=== PATIENT | female | born 1960 | race African-American/Black ===

== ENCOUNTER 2018-06-18 08:21 | Day surgery (SDC) | payer MEDICARE ==
[2018-06-18] VITALS (13 sets, daily range): BP systolic 113–146; BP diastolic 63–90
[~2018-06-18] VITALS: Ht 166.4 cm; Wt 112.8 kg
[~2018-06-18 08:21] MED LIST: CARV25TA PO; CLON0.3T PO; DILT240C11 PO; FURO20TA6 PO; GABA-533 PO; MAGN250T2 PO; OMEP40CA37 PO; POTA-79 PO; RIVA10TA PO; SODIUM CHLORIDE 0.9% 1000ML 1,000 ML IV ONE
[2018-06-18] MEDS ORDERED: PROPOFOL 10 MG/ML 20ML VIAL IV ONE ×4 (12:09→12:54)
[2018-06-27] MEDS ORDERED: SPIR1TAB4 PO (14:46)
[2018-06-27] MEDS ORDERED: RIVA20TA PO (14:46)
[2018-06-27] MEDS ORDERED: LIRA0.6P SQ (14:46)
[2018-07-01] MEDS ORDERED: SPIR25TA PO (16:58)
[2018-07-01] MEDS ORDERED: METO75TA PO (16:58)
[2018-07-01] MEDS ORDERED: TELM20TA2 PO (16:59)
== END 2018-06-18 14:15 | disposition home or self-care (01) ==
LOC: DAH 08:21 → ENDO 14:15
PROVIDERS: ATTEND Internal Medicine Gastroenterology
DX: D12.2 Benign neoplasm of ascending colon (principal); D12.3 Benign neoplasm of transverse colon; K57.30 Diverticulosis of large intestine without perforation or abscess without bleeding; K64.0 First degree hemorrhoids; K44.9 Diaphragmatic hernia without obstruction or gangrene; I85.00 Esophageal varices without bleeding; K29.50 Unspecified chronic gastritis without bleeding; K31.89 Other diseases of stomach and duodenum; K25.9 Gastric ulcer, unspecified as acute or chronic, without hemorrhage or perforation; K20.9 Esophagitis, unspecified; K21.9 Gastro-esophageal reflux disease without esophagitis; I10 Essential (primary) hypertension; E11.9 Type 2 diabetes mellitus without complications; I48.91 Unspecified atrial fibrillation; K60.2 Anal fissure, unspecified; D64.9 Anemia, unspecified; D25.9 Leiomyoma of uterus, unspecified; Z79.899 Other long term (current) drug therapy; Z79.01 Long term (current) use of anticoagulants
CPT/HCPCS: 36415; 43239; 45380; 45385; 87520; 88305; 88312; 88342; 93005; A4606; J2704 ×4; J7030

== ENCOUNTER 2018-07-17 07:52 | Inpatient (IN) | payer MEDICARE ==
[~2018-07-17] VITALS: Ht 167.6 cm; Wt 110.5 kg
[~2018-07-17 07:52] MED LIST changes: -CARV25TA PO; -CLON0.3T PO; -DILT240C11 PO; +LIRA0.6P SQ; +METO75TA PO; -RIVA10TA PO; +RIVA20TA PO; -SODIUM CHLORIDE 0.9% 1000ML 1,000 ML IV ONE; +SPIR25TA PO; +TELM20TA2 PO
[2018-07-17] MEDS ORDERED: IPRATROPIUM/ALBUTEROL SULFATE 3 ML SOLUTION IH ONE (08:06)
[2018-07-17 08:45] LABS: BASOPHILS % (AUTO) 0.4 % (0.0-5.0); EOSINOPHILS % (AUTO) 0.8 % (0.0-8.0); HEMATOCRIT 32.6 % (36-48); LYMPHOCYTES % (AUTO) 11.8 % (21.0-51.0); MEAN CORPUSCULAR VOLUME 87.8 fL (79-99); MONOCYTES % (AUTO) 5.4 % (3.0-13.0); NEUTROPHILS % (AUTO) 81.6 % (40.0-77.0); NUCLEATED RED BLOOD CELLS 0.1 % (0.0-0.19); PLATELET COUNT (AUTO) 223 K/uL (130-400); RED BLOOD CELL COUNT(AUTO) 3.71 MIL/uL (4.00-5.50); RED CELL DISTRIBUTION WIDTH 15.7 % (11.0-15.5); WHITE BLOOD COUNT (AUTO) 9.1 K/uL (4.8-10.8)
[2018-07-17 08:55] LABS: CREATININE 0.9 mg/dL (0.5-1.5); POTASSIUM 4.5 mmol/L (3.5-5.1)
[2018-07-17 08:59] LABS: INR 1.54 (0.85-1.15); PARTIAL THROMBOPLASTIN TIME 40.7 SEC (26.3-35.5); TOTAL PROTEIN, SERUM 8.7 g/dL (6.0-8.3)
[2018-07-17 09:20] LABS: B-TYPE NATRIURETIC PEPTIDE 1020 pg/mL (0-100)
[2018-07-17] MEDS ORDERED: ASPIRIN 325 MG TABLET ONE (09:29)
[2018-07-17] MEDS ORDERED: FUROSEMIDE 10 MG/ML 4ML VIAL ONE (09:29)
[2018-07-17] MEDS ORDERED: FUROSEMIDE 10 MG/ML 2ML VIAL ONE (09:30)
[2018-07-17] MEDS ORDERED: FUROSEMIDE 10 MG/ML 4ML VIAL IVP SCH (10:00)
[2018-07-17 10:18] LABS: APPEARANCE,URINE Cloudy (CLEAR); BILIRUBIN,URINE Negative (NEGATIVE); COLOR,URINE Yellow (YELLOW); GLUCOSE, URINE (UA) Negative (NEGATIVE); KETONES,URINE Negative (NEGATIVE); LEUKOCYTE ESTERASE ,URINE Trace (NEGATIVE); NITRATE,URINE Negative (NEGATIVE); OCCULT BLOOD,URINE Negative (NEGATIVE); PROTEIN,URINE Trace (NEGATIVE)
[2018-07-17 10:25] LABS: BACTERIA,URINE Rare /HPF (None Seen); MUCUS,URINE Few LPF (None Seen); RBC,URINE None Seen /HPF (0-1); SQUAMOUS EPITHELIAL CELL,UR Few /HPF (0-2); WBC,URINE None Seen /HPF (0-1)
[2018-07-17 11:30] VITALS: BP 104/70
[2018-07-17 15:48] VITALS: BP 103/79
[2018-07-17 19:00] VITALS: BP 118/79
[2018-07-17] MEDS ORDERED: LACTULOSE 20 GM/30 ML UDCUP PO PRN (21:15)
[2018-07-17] MEDS: METOPROLOL TARTRATE 25 MG TAB PO SCH (21:41)
[2018-07-17] MEDS: RIVAROXABAN 20 MG TABLET PO SCH (21:41)
[2018-07-17] MEDS: GABAPENTIN 100 MG CAPSULE PO SCH (21:41)
[2018-07-17] MEDS ORDERED: ONDANSETRON ODT 4 MG TAB PO PRN (21:45)
[2018-07-17] MEDS ORDERED: ACETAMINOPHEN EXTRA STRENGTH 500 MG TABLET PO PRN (21:45)
[2018-07-17] MEDS ORDERED: CLONIDINE HCL 0.3 MG TABLET PO PRN (21:45)
[2018-07-17] MEDS ORDERED: TRAMADOL HCL 50 MG TABLET PO PRN (21:45)
[2018-07-17] MEDS ORDERED: ONDA8TAB11 PO (21:54)
[2018-07-17] MEDS ORDERED: FLUT16H NASAL (21:54)
[2018-07-17] MEDS ORDERED: CLON0.3T PO (21:54)
[2018-07-17] MEDS ORDERED: MONT10TA24 PO (21:54)
[2018-07-17] MEDS ORDERED: TRAM50TA4 PO (21:54)
[2018-07-17] MEDS ORDERED: MAGN400C PO (21:55)
[2018-07-17] MEDS ORDERED: CETI10CA5 PO (21:57)
[2018-07-17] MEDS ORDERED: ACET-66 PO (21:59)
[2018-07-17] MEDS ORDERED: POTA-79 PO (22:00)
[2018-07-17 23:00] VITALS: BP 138/77
[2018-07-18] VITALS (7 sets, daily range): BP systolic 139–164; BP diastolic 76–99
[2018-07-18 04:33] LABS: HEMATOCRIT 33.6 % (36-48); MEAN CORPUSCULAR HEMOGLOBIN 28.1 pg (27.0-33.0); MEAN CORPUSCULAR VOLUME 87.9 fL (79-99); NUCLEATED RED BLOOD CELLS 0.1 % (0.0-0.19); PLATELET COUNT (AUTO) 223 K/uL (130-400); RED BLOOD CELL COUNT(AUTO) 3.82 MIL/uL (4.00-5.50); RED CELL DISTRIBUTION WIDTH 15.5 % (11.0-15.5); WHITE BLOOD COUNT (AUTO) 9.7 K/uL (4.8-10.8)
[2018-07-18 04:52] LABS: ALBUMIN 3.1 g/dL (3.5-5.0); BILIRUBIN,TOTAL 0.9 mg/dL (0.2-1.0); CREATININE 0.9 mg/dL (0.5-1.5); POTASSIUM 3.9 mmol/L (3.5-5.1); TOTAL PROTEIN, SERUM 8.8 g/dL (6.0-8.3)
[2018-07-18] MEDS: FUROSEMIDE 10 MG/ML 4ML VIAL IVP SCH ×2 (05:04→15:22)
[2018-07-18] MEDS ORDERED: IPRATROPIUM/ALBUTEROL SULFATE 3 ML SOLUTION IH PRN (06:00)
[2018-07-18] MEDS: INSULIN HUMULIN R 100 UNIT/ML 3ML SQ SCH ×4 (06:20→22:08)
[2018-07-18] MEDS: IPRATROPIUM/ALBUTEROL SULFATE 3 ML SOLUTION IH SCH ×4 (07:22→18:23)
[2018-07-18] MEDS: LEVOFLOXACIN 500 MG/D5W 100 ML 100 ML IV SCH (08:41)
[2018-07-18] MEDS: FLUTICASONE PROPIONATE 50MCG/SPRAY 16 GM BOTTLE EN SCH (08:41)
[2018-07-18] MEDS: METHYLPREDNISOLONE SOD SUCC 125MG/2ML VIAL IVP SCH ×2 (08:41→21:55)
[2018-07-18] MEDS: MAGNESIUM OXIDE 400 MG TABLET PO SCH ×2 (08:43→21:58)
[2018-07-18] MEDS: CETIRIZINE HCL 5 MG TABLET PO SCH (08:43)
[2018-07-18] MEDS: PANTOPRAZOLE SODIUM 40 MG TABLET.DR PO SCH (08:43)
[2018-07-18] MEDS: METOPROLOL TARTRATE 25 MG TAB PO SCH ×2 (08:43→21:58)
[2018-07-18] MEDS: LOSARTAN 50 MG TABLET PO SCH (08:44)
[2018-07-18] MEDS: POTASSIUM CHLORIDE 20 MEQ ERTAB PO SCH ×2 (08:44→08:48)
[2018-07-18] MEDS: GABAPENTIN 100 MG CAPSULE PO SCH ×2 (08:46→21:59)
[2018-07-18] MEDS: SPIRONOLACTONE 25 MG TAB PO SCH (08:47)
[2018-07-18] MEDS: MAGNESIUM 250 MG PO SCH (09:00)
[2018-07-18] MEDS: LIRAGLUTIDE 1.8 MG SQ SCH (09:00)
[2018-07-18] MEDS: MONTELUKAST SODIUM 10 MG TAB PO SCH (21:55)
[2018-07-18] MEDS: RIVAROXABAN 20 MG TABLET PO SCH (21:58)
[2018-07-19] VITALS (7 sets, daily range): BP systolic 129–170; BP diastolic 59–93
[2018-07-19 05:48] LABS: BASOPHILS % (AUTO) 0.2 % (0.0-5.0); HEMATOCRIT 36.8 % (36-48); LYMPHOCYTES % (AUTO) 5.9 % (21.0-51.0); MEAN CORPUSCULAR HEMOGLOBIN 28.9 pg (27.0-33.0); MEAN CORPUSCULAR VOLUME 87.4 fL (79-99); MONOCYTES % (AUTO) 1.9 % (3.0-13.0); PLATELET COUNT (AUTO) 271 K/uL (130-400); RED BLOOD CELL COUNT(AUTO) 4.21 MIL/uL (4.00-5.50); RED CELL DISTRIBUTION WIDTH 15.7 % (11.0-15.5); WHITE BLOOD COUNT (AUTO) 9.7 K/uL (4.8-10.8)
[2018-07-19] MEDS: FUROSEMIDE 10 MG/ML 4ML VIAL IVP SCH ×2 (05:58→16:00)
[2018-07-19 06:00] LABS: POTASSIUM 4.3 mmol/L (3.5-5.1)
[2018-07-19] MEDS: IPRATROPIUM/ALBUTEROL SULFATE 3 ML SOLUTION IH SCH ×3 (06:36→15:47)
[2018-07-19] MEDS: INSULIN HUMULIN R 100 UNIT/ML 3ML SQ SCH ×4 (06:38→20:24)
[2018-07-19] MEDS: POTASSIUM CHLORIDE 20 MEQ ERTAB PO SCH ×2 (09:00→10:24)
[2018-07-19] MEDS: LIRAGLUTIDE 1.8 MG SQ SCH (09:00)
[2018-07-19] MEDS: MAGNESIUM 250 MG PO SCH (09:00)
[2018-07-19] MEDS: LEVOFLOXACIN 500 MG/D5W 100 ML 100 ML IV SCH (10:23)
[2018-07-19] MEDS: SPIRONOLACTONE 25 MG TAB PO SCH (10:23)
[2018-07-19] MEDS: CETIRIZINE HCL 5 MG TABLET PO SCH (10:23)
[2018-07-19] MEDS: MAGNESIUM OXIDE 400 MG TABLET PO SCH ×2 (10:23→20:23)
[2018-07-19] MEDS: PANTOPRAZOLE SODIUM 40 MG TABLET.DR PO SCH (10:24)
[2018-07-19] MEDS: GABAPENTIN 100 MG CAPSULE PO SCH ×2 (10:24→20:23)
[2018-07-19] MEDS: LOSARTAN 50 MG TABLET PO SCH (10:24)
[2018-07-19] MEDS: METOPROLOL TARTRATE 25 MG TAB PO SCH ×2 (10:24→18:36)
[2018-07-19] MEDS: METHYLPREDNISOLONE SOD SUCC 125MG/2ML VIAL IVP SCH ×2 (10:25→20:23)
[2018-07-19] MEDS: FLUTICASONE PROPIONATE 50MCG/SPRAY 16 GM BOTTLE EN SCH (10:32)
[2018-07-19] MEDS: MONTELUKAST SODIUM 10 MG TAB PO SCH (20:23)
[2018-07-19] MEDS: RIVAROXABAN 20 MG TABLET PO SCH (20:23)
[2018-07-20 03:00] VITALS: BP 143/97
[2018-07-20] MEDS: FUROSEMIDE 10 MG/ML 4ML VIAL IVP SCH (04:02)
[2018-07-20] MEDS: INSULIN HUMULIN R 100 UNIT/ML 3ML SQ SCH (07:30)
[2018-07-20 07:53] VITALS: BP 148/98
[2018-07-20] MEDS: FLUTICASONE PROPIONATE 50MCG/SPRAY 16 GM BOTTLE EN SCH (09:00)
[2018-07-20] MEDS: POTASSIUM CHLORIDE 20 MEQ ERTAB PO SCH ×2 (09:00→10:38)
[2018-07-20] MEDS: METHYLPREDNISOLONE SOD SUCC 125MG/2ML VIAL IVP SCH (10:36)
[2018-07-20] MEDS: CETIRIZINE HCL 5 MG TABLET PO SCH (10:37)
[2018-07-20] MEDS: GABAPENTIN 100 MG CAPSULE PO SCH (10:37)
[2018-07-20] MEDS: LEVOFLOXACIN 500 MG/D5W 100 ML 100 ML IV SCH (10:37)
[2018-07-20] MEDS: LOSARTAN 50 MG TABLET PO SCH (10:38)
[2018-07-20] MEDS: PANTOPRAZOLE SODIUM 40 MG TABLET.DR PO SCH (10:39)
[2018-07-20] MEDS: SPIRONOLACTONE 25 MG TAB PO SCH (10:39)
[2018-07-20] MEDS: METOPROLOL TARTRATE 25 MG TAB PO SCH (10:39)
[2018-07-20] MEDS: MAGNESIUM OXIDE 400 MG TABLET PO SCH (10:40)
[2018-07-20 11:50] VITALS: BP 156/96
== END 2018-07-20 14:40 | disposition home or self-care (01) | DRG 191 ==
LOC: EDH 07:52 → EDHIP 09:44 → OBSVTOIN 09:44 → 3BH 10:45
PROVIDERS: ADMIT Internal Medicine; ATTEND Internal Medicine
DX: J44.1 Chronic obstructive pulmonary disease with (acute) exacerbation (principal); N39.0 Urinary tract infection, site not specified; I50.32 Chronic diastolic (congestive) heart failure; R19.7 Diarrhea, unspecified; I48.0 Paroxysmal atrial fibrillation; K21.9 Gastro-esophageal reflux disease without esophagitis; T48.6X5A Adverse effect of antiasthmatics, initial encounter; T38.0X5A Adverse effect of glucocorticoids and synthetic analogues, initial encounter; I34.0 Nonrheumatic mitral (valve) insufficiency; I11.0 Hypertensive heart disease with heart failure; E11.9 Type 2 diabetes mellitus without complications; E66.01 Morbid (severe) obesity due to excess calories; Z68.39 Body mass index [BMI] 39.0-39.9, adult; Z79.01 Long term (current) use of anticoagulants; Z79.899 Other long term (current) drug therapy; Y92.89 Other specified places as the place of occurrence of the external cause; Z88.8 Allergy status to other drugs, medicaments and biological substances
CPT/HCPCS: 36415; 71045; 80048; 80053; 81001; 82550; 82948; 83880; 84484; 85025; 85027; 85610; 85730; 87088; 93005; 94640; 94664; 99291; J1815; J1940; J1956; J2930

== ENCOUNTER 2018-08-21 08:53 | Inpatient (IN) | payer MEDICARE ==
[~2018-08-21] VITALS: Ht 167.6 cm; Wt 111.5 kg
[2018-08-21] VITALS (17 sets, daily range): BP systolic 103–146; BP diastolic 51–77
[~2018-08-21 08:53] MED LIST changes: +ACET-66 PO; +CETI10CA5 PO; +CLON0.3T PO; +FLUT16H NASAL; +MAGN400C PO; +MONT10TA24 PO; -OMEP40CA37 PO; +ONDA8TAB11 PO; -TELM20TA2 PO; +TRAM50TA4 PO
[2018-08-21 09:29] LABS: BASOPHILS % (AUTO) 0.5 % (0.0-5.0); EOSINOPHILS % (AUTO) 0.3 % (0.0-8.0); HEMATOCRIT 37.4 % (36-48); LYMPHOCYTES % (AUTO) 12.2 % (21.0-51.0); MEAN CORPUSCULAR HEMOGLOBIN 28.2 pg (27.0-33.0); MEAN CORPUSCULAR HGB CONC 32.9 g/dL (32.0-36.0); MEAN CORPUSCULAR VOLUME 85.8 fL (79-99); MONOCYTES % (AUTO) 5.1 % (3.0-13.0); NEUTROPHILS % (AUTO) 81.9 % (40.0-77.0); NUCLEATED RED BLOOD CELLS 0.1 % (0.0-0.19); PLATELET COUNT (AUTO) 175 K/uL (130-400); RED BLOOD CELL COUNT(AUTO) 4.36 MIL/uL (4.00-5.50); RED CELL DISTRIBUTION WIDTH 15.9 % (11.0-15.5); WHITE BLOOD COUNT (AUTO) 9.3 K/uL (4.8-10.8)
[2018-08-21 09:37] LABS: CREATININE 1.5 mg/dL (0.5-1.5); POTASSIUM 4.6 mmol/L (3.5-5.1)
[2018-08-21] MEDS ORDERED: SODIUM CHLORIDE 0.9% 500ML 500 ML IV ONE (09:41)
[2018-08-21 09:43] LABS: BILIRUBIN,TOTAL 0.5 mg/dL (0.2-1.0); TOTAL PROTEIN, SERUM 7.8 g/dL (6.0-8.3)
[2018-08-21] MEDS ORDERED: ONDANSETRON HCL 4 MG/2 ML VIAL ONE (09:45)
[2018-08-21] MEDS ORDERED: ACETAMINOPHEN EXTRA STRENGTH 500 MG TABLET ONE (09:46)
[2018-08-21 09:54] LABS: INR 1.43 (0.85-1.15); PARTIAL THROMBOPLASTIN TIME 34.4 SEC (26.3-35.5); PROTHROMBIN TIME 14.9 SEC (9.6-11.6)
[2018-08-21 10:27] LABS: B-TYPE NATRIURETIC PEPTIDE 644 pg/mL (0-100)
[2018-08-21 11:27] LABS: ABG HCO3 23.9 mmol/L (21.0-28.0); ABG OXYGEN SATURATION 98.3 % (95.0-99.0); ABG PCO2 37 mmHg (32-45)
[2018-08-21] MEDS ORDERED: SODIUM CHLORIDE 0.9% 10 ML VIAL IVP PRN (12:30)
[2018-08-21] MEDS ORDERED: ASPIRIN 81MG TAB.CHEW ONE (13:42)
[2018-08-21] MEDS ORDERED: ENOXAPARIN SODIUM 40 MG/0.4 ML SYRINGE SQ ONE (13:43)
[2018-08-21 16:22] LABS: TROPONIN I 0.73 ng/mL (0.00-0.06)
[2018-08-21] MEDS ORDERED: LACTATED RINGERS 1000ML IV SCH (16:45)
[2018-08-21] MEDS ORDERED: LACTATED RINGERS 1000ML 1,000 ML IV SCH (17:30)
[2018-08-21] MEDS: LACTATED RINGERS 1000ML 1,000 ML IV SCH (17:46)
[2018-08-21] MEDS ORDERED: DEXTROSE 50%-WATER 50 ML DISP.SYRIN IV PRN (20:15)
[2018-08-21] MEDS ORDERED: GLUCAGON 1MG KIT 1 MG ML IM PRN (20:15)
[2018-08-21] MEDS ORDERED: PHENYLEPHRINE HCL 10 MG in SODIUM CHLORIDE 0.9% 250 ML IV PRN (20:30)
[2018-08-21] MEDS: ZOSYN 3.375GM+NS 50ML 50 ML IV SCH (20:57)
[2018-08-21] MEDS: INSULIN HUMULIN R 100 UNIT/ML 3ML SQ SCH (21:00)
[2018-08-21 22:02] LABS: TROPONIN I 0.69 ng/mL (0.00-0.06)
[2018-08-22] VITALS (28 sets, daily range): BP systolic 109–178; BP diastolic 50–120
[2018-08-22] MEDS: LACTATED RINGERS 1000ML 1,000 ML IV SCH ×2 (02:13→08:56)
[2018-08-22] MEDS ORDERED: HYDROCODONE/ACETAMINOPHEN 5/325 MG TAB ONE (02:47)
[2018-08-22 03:39] LABS: HEMATOCRIT 33.4 % (36-48); MEAN CORPUSCULAR HEMOGLOBIN 28.2 pg (27.0-33.0); MEAN CORPUSCULAR HGB CONC 32.7 g/dL (32.0-36.0); MEAN CORPUSCULAR VOLUME 86.1 fL (79-99); PLATELET COUNT (AUTO) 160 K/uL (130-400); RED BLOOD CELL COUNT(AUTO) 3.88 MIL/uL (4.00-5.50); RED CELL DISTRIBUTION WIDTH 16.1 % (11.0-15.5); WHITE BLOOD COUNT (AUTO) 7.1 K/uL (4.8-10.8)
[2018-08-22 03:58] LABS: B-TYPE NATRIURETIC PEPTIDE 569 pg/mL (0-100); CREATININE 1.4 mg/dL (0.5-1.5); POTASSIUM 4.3 mmol/L (3.5-5.1)
[2018-08-22 04:01] LABS: BAND NEUTROPHILS % (MANUAL) 1 % (0-2); BASOPHILS % (MANUAL) 1 % (0-2); LYMPHOCYTES % (MANUAL) 16 % (22-44); MONOCYTES % (MANUAL) 3 % (2-9); SEGMENTED NEUTROPHILS % 79 % (40-70)
[2018-08-22 04:04] LABS: MAN.DIFF COMMENT-IMPRESSION MANUAL DIFFERENTIAL
[2018-08-22 04:05] LABS: PLATELET MORPHOLOGY COMMENT ADEQUATE
[2018-08-22] MEDS: ZOSYN 3.375GM+NS 50ML 50 ML IV SCH ×3 (05:00→21:11)
[2018-08-22] MEDS: INSULIN HUMULIN R 100 UNIT/ML 3ML SQ SCH ×4 (06:29→20:39)
[2018-08-22] MEDS ORDERED: DILT240C93 PO (08:42)
[2018-08-22] MEDS: ASPIRIN 81 MG EC TAB PO SCH (08:54)
[2018-08-22] MEDS ORDERED: ENOXAPARIN SODIUM 40 MG/0.4 ML SYRINGE SQ SCH (09:00)
[2018-08-22] MEDS ORDERED: PANTOPRAZOLE 40 MG/VIAL IVP SCH (09:00)
[2018-08-22] MEDS: HYDROCODONE/ACETAMINOPHEN 5/325 MG TAB PO PRN (12:28)
[2018-08-22] MEDS ORDERED: DILTIAZEM HCL 120 MG CAP.SR.24H PO SCH ×2 (19:00→21:00)
[2018-08-22] MEDS: FUROSEMIDE 10 MG/ML 4ML VIAL IV SCH (19:09)
[2018-08-22] MEDS: FUROSEMIDE 20 MG TABLET PO SCH (19:45)
[2018-08-22] MEDS: CLONIDINE HCL 0.3 MG TABLET PO SCH (21:00)
[2018-08-22] MEDS ORDERED: DILTIAZEM 125MG+100 ML NS 125 ML IV SCH (21:00)
[2018-08-22] MEDS ORDERED: DILTIAZEM HCL 120 MG CAP.SR.24H PO ONE (21:00)
[2018-08-22] MEDS: GABAPENTIN 100 MG CAPSULE PO SCH (21:10)
[2018-08-22] MEDS: MONTELUKAST SODIUM 10 MG TAB PO SCH (21:11)
[2018-08-22] MEDS: RIVAROXABAN 20 MG TABLET PO SCH (21:11)
[2018-08-23] VITALS (7 sets, daily range): BP systolic 101–149; BP diastolic 50–88
[2018-08-23] MEDS: DIGOXIN 250 MCG TABLET PO SCH ×3 (00:04→22:23)
[2018-08-23] MEDS: TRAMADOL HCL 50 MG TABLET PO PRN ×2 (00:05→13:05)
[2018-08-23 03:54] LABS: BASOPHILS % (AUTO) 0.3 % (0.0-5.0); EOSINOPHILS % (AUTO) 0.2 % (0.0-8.0); LYMPHOCYTES % (AUTO) 12.1 % (21.0-51.0); MEAN CORPUSCULAR HEMOGLOBIN 27.9 pg (27.0-33.0); MEAN CORPUSCULAR HGB CONC 32.5 g/dL (32.0-36.0); MONOCYTES % (AUTO) 7.3 % (3.0-13.0); NEUTROPHILS % (AUTO) 80.1 % (40.0-77.0); NUCLEATED RED BLOOD CELLS 0.1 % (0.0-0.19); PLATELET COUNT (AUTO) 167 K/uL (130-400); RED BLOOD CELL COUNT(AUTO) 4.19 MIL/uL (4.00-5.50); WHITE BLOOD COUNT (AUTO) 9.6 K/uL (4.8-10.8)
[2018-08-23 03:56] LABS: CREATININE 1.1 mg/dL (0.5-1.5); POTASSIUM 3.9 mmol/L (3.5-5.1)
[2018-08-23] MEDS: ZOSYN 3.375GM+NS 50ML 50 ML IV SCH ×3 (04:44→21:02)
[2018-08-23] MEDS: INSULIN HUMULIN R 100 UNIT/ML 3ML SQ SCH ×4 (06:11→21:00)
[2018-08-23] MEDS: SPIRONOLACTONE 25 MG TAB PO SCH (08:29)
[2018-08-23] MEDS: MAGNESIUM OXIDE 400 MG TABLET PO SCH ×2 (08:29→21:03)
[2018-08-23] MEDS: ASPIRIN 81 MG EC TAB PO SCH (08:29)
[2018-08-23] MEDS: GABAPENTIN 100 MG CAPSULE PO SCH ×3 (08:30→21:04)
[2018-08-23] MEDS: FUROSEMIDE 20 MG TABLET PO SCH ×2 (08:30→21:00)
[2018-08-23] MEDS: POTASSIUM CHLORIDE 20 MEQ ERTAB PO SCH (08:30)
[2018-08-23] MEDS ORDERED: DILTIAZEM HCL 120 MG CAP.SR.24H PO ONE (08:37)
[2018-08-23] MEDS: DILTIAZEM HCL 180 MG CAP.SR.24H PO SCH ×2 (08:38→21:04)
[2018-08-23] MEDS ORDERED: DILTIAZEM HCL 120 MG CAP.SR.24H PO SCH (09:00)
[2018-08-23] MEDS: FLUTICASONE PROPIONATE 50MCG/SPRAY 16 GM BOTTLE EN SCH (09:00)
[2018-08-23] MEDS: PANTOPRAZOLE SODIUM 40 MG TABLET.DR PO SCH (11:29)
[2018-08-23] MEDS: FUROSEMIDE 10 MG/ML 4ML VIAL IV SCH (17:52)
[2018-08-23] MEDS: CLONIDINE HCL 0.3 MG TABLET PO SCH (21:02)
[2018-08-23] MEDS: MONTELUKAST SODIUM 10 MG TAB PO SCH (21:03)
[2018-08-23] MEDS: RIVAROXABAN 20 MG TABLET PO SCH (21:03)
[2018-08-23] MEDS: HYDROCODONE/ACETAMINOPHEN 5/325 MG TAB PO PRN (21:19)
[2018-08-24 04:19] VITALS: BP 126/62
[2018-08-24] MEDS: ZOSYN 3.375GM+NS 50ML 50 ML IV SCH ×3 (04:24→21:16)
[2018-08-24] MEDS: PANTOPRAZOLE SODIUM 40 MG TABLET.DR PO SCH (06:31)
[2018-08-24] MEDS: INSULIN HUMULIN R 100 UNIT/ML 3ML SQ SCH ×4 (06:31→21:00)
[2018-08-24 07:00] VITALS: BP 123/73
[2018-08-24] MEDS: DILTIAZEM HCL 120 MG CAP.SR.24H PO SCH ×3 (09:00→21:13)
[2018-08-24] MEDS: ASPIRIN 81 MG EC TAB PO SCH (09:05)
[2018-08-24] MEDS: SPIRONOLACTONE 25 MG TAB PO SCH (09:05)
[2018-08-24] MEDS: DIGOXIN 250 MCG TABLET PO SCH ×2 (09:06→21:17)
[2018-08-24] MEDS: FUROSEMIDE 20 MG TABLET PO SCH ×2 (09:07→21:13)
[2018-08-24] MEDS: POTASSIUM CHLORIDE 20 MEQ ERTAB PO SCH (09:07)
[2018-08-24] MEDS: GABAPENTIN 100 MG CAPSULE PO SCH ×3 (09:07→21:14)
[2018-08-24] MEDS: MAGNESIUM OXIDE 400 MG TABLET PO SCH ×2 (09:07→21:13)
[2018-08-24] MEDS: FLUTICASONE PROPIONATE 50MCG/SPRAY 16 GM BOTTLE EN SCH (09:17)
[2018-08-24 11:00] VITALS: BP 110/67
[2018-08-24 16:00] VITALS: BP 138/75
[2018-08-24 19:38] VITALS: BP 124/74
[2018-08-24] MEDS: MONTELUKAST SODIUM 10 MG TAB PO SCH (21:14)
[2018-08-24] MEDS: CLONIDINE HCL 0.3 MG TABLET PO SCH (21:15)
[2018-08-24] MEDS: RIVAROXABAN 20 MG TABLET PO SCH (21:15)
[2018-08-24 23:49] VITALS: BP 119/61
[2018-08-25 04:05] VITALS: BP 119/66
[2018-08-25] MEDS: ZOSYN 3.375GM+NS 50ML 50 ML IV SCH ×3 (04:42→22:28)
[2018-08-25] MEDS: INSULIN HUMULIN R 100 UNIT/ML 3ML SQ SCH ×4 (06:00→21:00)
[2018-08-25] MEDS: PANTOPRAZOLE SODIUM 40 MG TABLET.DR PO SCH (06:57)
[2018-08-25 07:00] VITALS: BP 132/69
[2018-08-25] MEDS: DIGOXIN 250 MCG TABLET PO SCH (08:42)
[2018-08-25] MEDS: ASPIRIN 81 MG EC TAB PO SCH (08:42)
[2018-08-25] MEDS: SPIRONOLACTONE 25 MG TAB PO SCH (08:42)
[2018-08-25] MEDS: MAGNESIUM OXIDE 400 MG TABLET PO SCH ×2 (08:43→22:33)
[2018-08-25] MEDS: GABAPENTIN 100 MG CAPSULE PO SCH ×3 (08:43→22:29)
[2018-08-25] MEDS: POTASSIUM CHLORIDE 20 MEQ ERTAB PO SCH (08:44)
[2018-08-25] MEDS: FLUTICASONE PROPIONATE 50MCG/SPRAY 16 GM BOTTLE EN SCH (08:45)
[2018-08-25] MEDS: DILTIAZEM HCL 120 MG CAP.SR.24H PO SCH (08:45)
[2018-08-25] MEDS: FUROSEMIDE 20 MG TABLET PO SCH ×2 (08:48→16:59)
[2018-08-25 11:00] VITALS: BP 117/70
[2018-08-25 14:38] LABS: MAGNESIUM 1.9 mg/dL (1.80-2.40); POTASSIUM 4.1 mmol/L (3.5-5.1)
[2018-08-25 16:00] VITALS: BP 139/67
[2018-08-25 19:53] VITALS: BP 137/76
[2018-08-25] MEDS: CLONIDINE HCL 0.3 MG TABLET PO SCH (22:30)
[2018-08-25] MEDS: MONTELUKAST SODIUM 10 MG TAB PO SCH (22:30)
[2018-08-25] MEDS: RIVAROXABAN 20 MG TABLET PO SCH (22:33)
[2018-08-25 23:56] VITALS: BP 103/64
[2018-08-26] MEDS: DILTIAZEM HCL 120 MG CAP.SR.24H PO SCH ×2 (00:20→09:13)
[2018-08-26 03:47] LABS: BASOPHILS % (AUTO) 0.2 % (0.0-5.0); EOSINOPHILS % (AUTO) 0.5 % (0.0-8.0); HEMATOCRIT 37.8 % (36-48); MEAN CORPUSCULAR HEMOGLOBIN 28.1 pg (27.0-33.0); MEAN CORPUSCULAR HGB CONC 32.7 g/dL (32.0-36.0); MEAN CORPUSCULAR VOLUME 85.9 fL (79-99); MONOCYTES % (AUTO) 7.9 % (3.0-13.0); NEUTROPHILS % (AUTO) 71.4 % (40.0-77.0); PLATELET COUNT (AUTO) 202 K/uL (130-400); RED BLOOD CELL COUNT(AUTO) 4.39 MIL/uL (4.00-5.50); RED CELL DISTRIBUTION WIDTH 15.8 % (11.0-15.5); WHITE BLOOD COUNT (AUTO) 6.9 K/uL (4.8-10.8)
[2018-08-26 03:54] LABS: INR 1.52 (0.85-1.15); PARTIAL THROMBOPLASTIN TIME 39.1 SEC (26.3-35.5); PROTHROMBIN TIME 15.8 SEC (9.6-11.6)
[2018-08-26 04:05] LABS: ALBUMIN 3.2 g/dL (3.5-5.0); BILIRUBIN,TOTAL 0.7 mg/dL (0.2-1.0); MAGNESIUM 1.7 mg/dL (1.80-2.40); PHOSPHORUS 4.3 mg/dL (2.5-4.9); THYROID STIMULATING HORMONE 0.66 uIU/mL (0.36-3.74); TOTAL PROTEIN, SERUM 8.3 g/dL (6.0-8.3)
[2018-08-26 04:16] VITALS: BP 146/66
[2018-08-26] MEDS: ZOSYN 3.375GM+NS 50ML 50 ML IV SCH ×2 (05:49→12:47)
[2018-08-26] MEDS: INSULIN HUMULIN R 100 UNIT/ML 3ML SQ SCH ×3 (06:03→16:30)
[2018-08-26] MEDS: PANTOPRAZOLE SODIUM 40 MG TABLET.DR PO SCH (06:50)
[2018-08-26 07:30] VITALS: BP 129/64
[2018-08-26] MEDS: ASPIRIN 81 MG EC TAB PO SCH (09:11)
[2018-08-26] MEDS: POTASSIUM CHLORIDE 20 MEQ ERTAB PO SCH (09:12)
[2018-08-26] MEDS: MAGNESIUM OXIDE 400 MG TABLET PO SCH (09:12)
[2018-08-26] MEDS: SPIRONOLACTONE 25 MG TAB PO SCH (09:13)
[2018-08-26] MEDS: FUROSEMIDE 20 MG TABLET PO SCH ×2 (09:13→17:47)
[2018-08-26] MEDS: DIGOXIN 250 MCG TABLET PO SCH (09:14)
[2018-08-26] MEDS: GABAPENTIN 100 MG CAPSULE PO SCH ×2 (09:14→12:47)
[2018-08-26] MEDS: FLUTICASONE PROPIONATE 50MCG/SPRAY 16 GM BOTTLE EN SCH (09:15)
[2018-08-26 11:13] VITALS: BP 124/69
[2018-08-26] MEDS ORDERED: PANT40TA PO (11:24)
[2018-08-26] MEDS ORDERED: AEC81 PO (11:24)
[2018-08-26] MEDS ORDERED: DIGO250T PO (11:24)
[2018-08-26] MEDS ORDERED: DILT240C93 PO (11:24)
[2018-08-26 16:25] VITALS: BP 116/69
== END 2018-08-26 19:45 | disposition home or self-care (01) | DRG 444 ==
LOC: EDH 08:53 → EDHIP 12:05 → OBSVTOIN 12:05 → 2CH 14:34 → 2DH 08-22 19:55
PROVIDERS: ADMIT Internal Medicine; ATTEND Internal Medicine
PROC: 3E0234Z Introduction of Serum, Toxoid and Vaccine into Muscle, Percutaneous Approach (ICD-10-PCS; principal; 2018-08-23)
DX: K80.70 Calculus of gallbladder and bile duct without cholecystitis without obstruction (principal); I50.23 Acute on chronic systolic (congestive) heart failure; I95.9 Hypotension, unspecified; E66.01 Morbid (severe) obesity due to excess calories; I48.2 Chronic atrial fibrillation; I34.0 Nonrheumatic mitral (valve) insufficiency; E11.9 Type 2 diabetes mellitus without complications; E78.5 Hyperlipidemia, unspecified; G47.33 Obstructive sleep apnea (adult) (pediatric); I11.0 Hypertensive heart disease with heart failure; I27.20 Pulmonary hypertension, unspecified; R00.1 Bradycardia, unspecified; Z68.39 Body mass index [BMI] 39.0-39.9, adult; I25.2 Old myocardial infarction; Z23 Encounter for immunization; Z79.01 Long term (current) use of anticoagulants; Z86.73 Personal history of transient ischemic attack (TIA), and cerebral infarction without residual deficits; Z88.8 Allergy status to other drugs, medicaments and biological substances; Z83.3 Family history of diabetes mellitus; Z82.0 Family history of epilepsy and other diseases of the nervous system
CPT/HCPCS: 36415; 36600; 71045; 74176; 78227; 80048; 80053; 82150; 82550; 82803; 82948; 83735; 83874; 83880; 84100; 84443; 84484; 85025; 85610; 85730; 87040; 93005; 99291; A9537; C9113; J1650; J1940; J2405; J2543; J7040; J7120; Q2038